=== PATIENT | female | born 2000 ===

== ENCOUNTER 2022-07-16 15:17 | Emergency (ER) | payer BC, MEDICAID ==
[~2022-07-16] VITALS: Ht 157.5 cm; Wt 52.3 kg
[2022-07-16 16:11] VITALS: BP 104/62
[2022-07-16] MEDS ORDERED: PERTUSS(ACELL),DIPH,TET VAC/PF 0.5 ML SYRINGE IM. ONE (16:45)
[2022-07-16] MEDS ORDERED: CEPH-558 PO (16:49)
[2022-07-16] MEDS ORDERED: IBUP-1506 PO (16:50)
[2022-07-16] MEDS ORDERED: SULF-261 PO (16:50)
== END 2022-07-16 17:39 | disposition home or self-care (01) ==
LOC: EMS 15:17
DX: L03.90 Cellulitis, unspecified (principal); F12.90 Cannabis use, unspecified, uncomplicated
CPT/HCPCS: 90471; 90715; 99283